=== PATIENT | male | born 1960 | race Caucasian/White ===

== ENCOUNTER 2016-05-26 12:35 | Emergency (ER) | payer OTHER ==
[~2016-05-26] VITALS: Ht 195.6 cm; Wt 125.0 kg
[~2016-05-26 12:35] MED LIST: ALBI1INJ SQ; ASPI81TA21 PO; CLON.1 PO; GABA800T PO; GLUC10TA3 PO; HARVONI PO; ISOS30 PO; LOPR50TA12 PO; LOSA100T PO; PLAV75TA PO; PROT40TA PO; SIME80CH CHEW
[2016-05-26 12:37] VITALS: BP 138/88; PULSE 98; RESP 24; TEMP 99.5; O2SAT 91
[2016-05-26] MEDS ORDERED: SODIUM CHLOR 0.9% 1000 ML INJ 1,000 ML IV SCH (15:12)
[2016-05-26] MEDS ORDERED: ONDANSETRON HCL 4 MG/2 ML VIAL IVP ONE (15:15)
[2016-05-26] MEDS ORDERED: RESP: ALBUTEROL 2.5 MG/IPRATROPIUM 0.5 MG NEB (SCH) NEB ONE (15:15)
[2016-05-26] MEDS ORDERED: RESP: LIDOCAINE HCL 4% PF 5 ML NEB NEB ONE (15:15)
[2016-05-26] MEDS ORDERED: MORPHINE SULFATE 4 MG/ML INJ IV PUSH ONE (15:15)
[2016-05-26] MEDS ORDERED: SODIUM CHLORIDE 0.9% FLUSH 5 ML FLUSH IVF PRN (15:15)
--- NOTE | 2016-05-26 15:25 | PD ---
HPI Chief Complaint: Cold / Flu Symptoms Time Seen by Provider: 15:07 Travel History International Travel<30 days: No Contact w/Intl Traveler<30days: No Traveled to known affect area: No History of Present Illness HPI The patient is a 55-year-old male who presents to the emergency department for fever, congestion, cough, and abdominal pain. The patient states his symptoms started on Tuesday when he "caught something ". The patient' s initial symptoms including nasal congestion and a productive cough producing yellow to brown sputum. The patient then developed abdominal pain after coughing, but now notes it is significantly increased the lower aspect of his abdomen. The patient does have a history of bilateral lower inguinal hernia repair. He denies any change in bowel habits, nausea, vomiting, or diarrhea. He does complain of subjective fevers with intermittent chills and sweats. The patient did receive his influenza vaccination and pneumococcal vaccination earlier this year, states he is a . The patient does complain of mild shortness of breath secondary to the coughing and also notes a small amount of posttussive emesis. PFSH Past Medical History Hx Anticoagulant Therapy: Yes Cardiovascular Problems: Yes High Cholesterol: Yes Cirrhosis: Yes Diabetes: Yes Diminished Hearing: No GERD: Yes Hepatitis: Yes (C) Hypertension: Yes Social History Alcohol Use: No Tobacco Use: Yes (1 PPD) Substance Use: No Allergies-Medications (Allergen,Severity, Reaction): Coded Allergies: No Known Allergies (Unverified , 05/26/16) Reported Meds & Prescriptions Reported Meds & Active Scripts Active Zithromax Z-Zackary (Azithromycin) 250 Mg Dspk 250 Mg PO DIRECTED 500 MG (2 tabs) day 1, then 1 tab days 2-5. Guaifenesin-Codeine Liq 100-10 Mg/5 Ml Soln 10 Ml PO Q6H PRN Ventolin Hfa 18 GM Inh (Albuterol Sulfate) 90 Mcg/Act Aer 2 Puff INH Q4H PRN Deltasone (Prednisone) 20 Mg Tab 40 Mg PO DAILY 5 Days Reported Tanzeum 4-Pack Inj (Albiglutide) 50 Mg Pfpen 50 Mg SQ Q7D Aspirin 81 Mg Tabdr 81 Mg PO DAILY Plavix (Clopidogrel Bisulfate) 75 Mg Tab 75 Mg PO DAILY Gabapentin 800 Mg Tab 800 Mg PO TID Glipizide 10 Mg Tab 20 Mg PO BIDAC Take 30 minutes before a meal Isosorbide Mononitrate ER (Isosorbide Mononitrate) 30 Mg Ayo 30 Mg PO DAILY Metoprolol Tartrate 100 Mg Tab 100 Mg PO BID Losartan (Losartan Potassium) 100 Mg Tab 100 Mg PO DAILY Simethicone 80 Mg Chw 160 Mg CHEW TID PRN Elavil (Amitriptyline HCl) 25 Mg Tab 25 Mg PO BID Amlodipine (Amlodipine Besylate) 10 Mg Tab 10 Mg PO DAILY Atorvastatin (Atorvastatin Calcium) 40 Mg Tab 40 Mg PO HS Terazosin (Terazosin HCl) 2 Mg Cap 2 Mg PO DAILY Review of Systems Except as stated in HPI: all other systems reviewed are Neg General / Constitutional: Positive: Fever (subjective), Chills HENT: Positive: Sore Throat, Congestion Cardiovascular: No: Chest Pain or Discomfort Respiratory: Positive: Cough, Shortness of Breath Gastrointestinal: Positive: Abdominal Pain, Other (posttussive emesis), No: Nausea, Vomiting, Diarrhea Genitourinary: No: Dysuria Musculoskeletal: Positive: Myalgias, Arthralgias Skin: No Rash Physical Exam Narrative GENERAL: Awake, alert, pleasant 55-year-old male who appears his stated age and is in no acute respiratory distress. SKIN: Warm and dry. HEAD: Atraumatic. Normocephalic. EYES: Pupils equal and round. No scleral icterus. No injection or drainage. ENT: No nasal bleeding or discharge. Oropharynx reveals diffuse erythema without exudate. NECK: Trachea midline. No JVD. CARDIOVASCULAR: Regular rate and rhythm. No murmur appreciated. Heart rate in the 90s. RESPIRATORY: No accessory muscle use. Few coarse rhonchi bilaterally. GASTROINTESTINAL: Abdomen obese, diffuse tenderness, worse in the left lower quadrant. No rebound tenderness or guarding. Back: No CVA tenderness. MUSCULOSKELETAL: No obvious deformities. No clubbing. No cyanosis. No edema. NEUROLOGICAL: Awake and alert. No obvious cranial nerve deficits. Motor grossly within normal limits. Normal speech. PSYCHIATRIC: Appropriate mood and affect; insight and judgment normal. Data Data Last Documented VS Vital Signs Date Time Temp Pulse Resp B/P Pulse Ox O2 Delivery O2 Flow Rate FiO2 05/26/16 18:21 83 16 122/72 92 05/26/16 16:23 Nasal Cannula 2 05/26/16 15:44 98.0 Orders Complete Blood Count With Diff (05/26/16 15:12) Comprehensive Metabolic Panel (05/26/16 15:12) Lipase (05/26/16 15:12) Lactic Acid (05/26/16 15:12) Urinalysis - C+S If Indicated (05/26/16 15:12) Ct Abd/Pel W/O Iv Contrast (05/26/16 15:12) Iv Access Insert/Monitor (05/26/16 15:12) Ecg Monitoring (05/26/16 15:12) Oximetry (05/26/16 15:12) Morphine Inj (Morphine Inj) (05/26/16 15:15) Ondansetron Inj (Zofran Inj) (05/26/16 15:15) Sodium Chlor 0.9% 1000 Ml Inj (Ns 1000 M (05/26/16 15:12) Sodium Chloride 0.9% Flush (Ns Flush) (05/26/16 15:15) Chest, Single Ap (05/26/16 15:12) Influenzae A/B Antigen (05/26/16 15:12) Blood Culture (05/26/16 15:12) Albuterol-Ipratropium Neb (Duoneb Neb) (05/26/16 15:15) Lidocaine Pf 4% Neb (Lidocaine Pf 4% Neb (05/26/16 15:15) Methylprednisolone So Succ Inj (Solumedr (05/26/16 17:45) Labs Laboratory Tests Test 05/26/16 05/26/16 15:38 16:33 White Blood Count 11.4 TH/MM3 Red Blood Count 5.28 MIL/MM3 Hemoglobin 17.1 GM/DL Hematocrit 49.6 % Mean Corpuscular Volume 94.1 FL Mean Corpuscular Hemoglobin 32.4 PG Mean Corpuscular Hemoglobin 34.4 % Concent Red Cell Distribution Width 13.4 % Platelet Count 153 TH/MM3 Mean Platelet Volume 10.6 FL Neutrophils (%) (Auto) 76.6 % Lymphocytes (%) (Auto) 12.0 % Monocytes (%) (Auto) 10.8 % Eosinophils (%) (Auto) 0.1 % Basophils (%) (Auto) 0.5 % Neutrophils # (Auto) 8.7 TH/MM3 Lymphocytes # (Auto) 1.4 TH/MM3 Monocytes # (Auto) 1.2 TH/MM3 Eosinophils # (Auto) 0.0 TH/MM3 Basophils # (Auto) 0.1 TH/MM3 CBC Comment DIFF FINAL Differential Comment Sodium Level 134 MEQ/L Potassium Level 4.0 MEQ/L Chloride Level 98 MEQ/L Carbon Dioxide Level 25.5 MEQ/L Anion Gap 11 MEQ/L Blood Urea Nitrogen 16 MG/DL Creatinine 1.13 MG/DL Estimat Glomerular Filtration 67 ML/MIN Rate Random Glucose 162 MG/DL Lactic Acid Level 1.4 mmol/L Calcium Level 8.9 MG/DL Total Bilirubin 0.6 MG/DL Aspartate Amino Transf 51 U/L (AST/SGOT) Alanine Aminotransferase 83 U/L (ALT/SGPT) Alkaline Phosphatase 69 U/L Total Protein 8.3 GM/DL Albumin 3.7 GM/DL Lipase 123 U/L Urine Color YELLOW Urine Turbidity CLEAR Urine pH 6.0 Urine Specific [place] 1.025 Urine Protein 100 mg/dL Urine Glucose (UA) NEG mg/dL Urine Ketones NEG mg/dL Urine Occult Blood NEG Urine Nitrite NEG Urine Bilirubin NEG Urine Urobilinogen 8.0 MG/DL Urine Leukocyte Esterase NEG Urine RBC 1 /hpf Urine WBC 1 /hpf Urine Mucus FEW /lpf Microscopic Urinalysis Comment CULT NOT INDICATED MDM Medical Decision Making Medical Screen Exam Complete: Yes Emergency Medical Condition: Yes Medical Record Reviewed: Yes Interpretation(s) Chest x-ray reveals no acute cardiopulmonary findings are identified Laboratory Tests Test 05/26/16 15:38 White Blood Count 11.4 TH/MM3 Red Blood Count 5.28 MIL/MM3 Hemoglobin 17.1 GM/DL Hematocrit 49.6 % Mean Corpuscular Volume 94.1 FL Mean Corpuscular Hemoglobin 32.4 PG Mean Corpuscular Hemoglobin 34.4 % Concent Red Cell Distribution Width 13.4 % Platelet Count 153 TH/MM3 Mean Platelet Volume 10.6 FL Neutrophils (%) (Auto) 76.6 % Lymphocytes (%) (Auto) 12.0 % Monocytes (%) (Auto) 10.8 % Eosinophils (%) (Auto) 0.1 % Basophils (%) (Auto) 0.5 % Neutrophils # (Auto) 8.7 TH/MM3 Lymphocytes # (Auto) 1.4 TH/MM3 Monocytes # (Auto) 1.2 TH/MM3 Eosinophils # (Auto) 0.0 TH/MM3 Basophils # (Auto) 0.1 TH/MM3 CBC Comment DIFF FINAL Differential Comment Sodium Level 134 MEQ/L Potassium Level 4.0 MEQ/L Chloride Level 98 MEQ/L Carbon Dioxide Level 25.5 MEQ/L Anion Gap 11 MEQ/L Blood Urea Nitrogen 16 MG/DL Creatinine 1.13 MG/DL Estimat Glomerular Filtration 67 ML/MIN Rate Random Glucose 162 MG/DL Lactic Acid Level 1.4 mmol/L Calcium Level 8.9 MG/DL Total Bilirubin 0.6 MG/DL Aspartate Amino Transf 51 U/L (AST/SGOT) Alanine Aminotransferase 83 U/L (ALT/SGPT) Alkaline Phosphatase 69 U/L Total Protein 8.3 GM/DL Albumin 3.7 GM/DL Lipase 123 U/L Last Impressions Chest X-Ray 05/26/16 1512 Signed Impressions: Service Date/Time: Thursday, May 26, 2016 15:25 - CONCLUSION: No acute cardiopulmonary findings are identified. Presley Pierre MD CT the abdomen and pelvis reveals no acute pathology Differential Diagnosis Differential diagnosis includes influenza, bronchitis, pneumonia, diverticulitis , sepsis, pyelonephritis, dehydration, pertussis. Narrative Course IV was established, labs are drawn and sent, and the patient was placed on cardiac telemetry monitoring and continuous pulse oximetry monitoring. Chest x- ray was ordered. Influenza screen was sent to lab. UA was ordered. CT of the abdomen and pelvis was ordered to evaluate for fever with left lower quadrant abdominal pain. Chest x-ray was unremarkable. Influenza screen was negative. CT the abdomen and pelvis reveals no incarcerated hernia or diverticulitis. White count was minimally elevated. The patient was reassessed, his symptoms had improved, he will be discharged home on prednisone, albuterol inhaler, cough medicine, and Zithromax. He is advised to follow-up with his primary physician and return if symptoms worsen or progress. Diagnosis Primary Impression: Bronchitis Patient Instructions: General Instructions Additional Instructions: Medications as directed. Follow-up with the [facility]. Please provide a patient a copy of his labs, chest x-ray results, flu results, and CT results at discharge. Return if symptoms worsen or progress. Med/Other Pt SpecificInfo: Prescription(s) given Scripts Azithromycin (Zithromax Z-Zackary)250 Mg [id number] Mg PO DIRECTED #1 DSPK Ref 0 500 MG (2 tabs) day 1, then 1 tab days 2-5. Prov:Ziyad Back MD 05/26/16 Guaifenesin-Codeine Liq 100-10 Mg/5 Ml Soln10 Ml PO Q6H PRN (COUGH) #1 BOTTLE Ref 0 Prov:Ziyad Back MD 05/26/16 Albuterol 18 GM Inh (Ventolin Hfa 18 GM Inh)90 Mcg/Act Aer2 Puff INH Q4H PRN ( SHORTNESS OF BREATH) #1 INHALER Ref 0 Prov:Ziyad Back MD 05/26/16 Prednisone (Deltasone)20 Mg Tab40 Mg PO DAILY 5 Days Ref 0 Prov:Ziyad Back MD 05/26/16 Disposition: 01 DISCHARGE HOME Condition: Stable Ziyad Back MD May 26, 2016 15:25
--- NOTE | 2016-05-26 15:39 | RADRPT ---
EXAM DATE/TIME: 05/26/2016 15:25 [facility] COMPARISON: No previous studies available for comparison. INDICATIONS : Cough, shortness of breath, and fever. MEDICAL HISTORY : None. SURGICAL HISTORY : None. ENCOUNTER: Initial ACUITY: 1 day PAIN SCORE: 3/10 LOCATION: chest FINDINGS: A single view of the chest demonstrates the lungs to be symmetrically aerated without evidence of mas s, infiltrate or effusion. The cardiomediastinal contours are unremarkable. Osseous structures demo nstrate an old, healed fracture of the right clavicle but are otherwise intact. CONCLUSION: No acute cardiopulmonary findings are identified. Prelsey Pierre MD on May 26, 2016 at 15:36 Board Certified Radiologist. This report was verified electronically.
[2016-05-26 15:43] VITALS: O2SAT 90
[2016-05-26 15:44] VITALS: BP 166/84; PULSE 85; RESP 20; TEMP 98; O2SAT 95
[2016-05-26 16:11] LABS: AUTOMATED NEUTROPHIL # 8.7 TH/MM3 (1.8-7.7); BASOPHIL # 0.1 TH/MM3 (0-0.2); BASOPHIL % 0.5 % (0.0-2.0); EOSINOPHIL % 0.1 % (0.0-4.0); HEMATOCRIT 49.6 % (39.0-51.0); HEMO FLAGS DIFF FINAL; LYMPHOCYTE # 1.4 TH/MM3 (1.0-4.8); MEAN CELL VOLUME 94.1 FL (80.0-100.0); MEAN CORPUSCULAR HEMOGLOBIN 32.4 PG (27.0-34.0); MEAN CORPUSCULAR HGB CONC 34.4 % (32.0-36.0); MONO % 10.8 % (0.0-8.0); NEUT % 76.6 % (16.0-70.0); PLATELET COUNT 153 TH/MM3 (150-450); RED BLOOD COUNT 5.28 MIL/MM3 (4.50-5.90); RED CELL DISTRIBUTION WIDTH 13.4 % (11.6-17.2); WHITE BLOOD COUNT 11.4 TH/MM3 (4.0-11.0)
[2016-05-26 16:22] VITALS: BP 143/75; PULSE 89; RESP 19; O2SAT 96
[2016-05-26 16:29] LABS: ALT (GPT) 83 U/L (12-78); ANION GAP 11 MEQ/L (5-15); AST (GOT) 51 U/L (15-37); BICARBONATE 25.5 MEQ/L (21.0-32.0); BLOOD UREA NITROGEN 16 MG/DL (7-18); CHLORIDE 98 MEQ/L (98-107); GLOMERULAR FILTRATION RATE 67 ML/MIN (>89); SODIUM (NA) 134 MEQ/L (136-145)
[2016-05-26 16:31] LABS: ALKALINE PHOSPHATASE 69 U/L (45-117); TOTAL BILIRUBIN ADULT 0.6 MG/DL (0.2-1.0)
--- NOTE | 2016-05-26 16:40 | RADRPT ---
EXAM DATE/TIME: 05/26/2016 15:50 [facility] COMPARISON: No previous studies available for comparison. INDICATIONS : Shortness of breath and lower abdomen pain. ORAL CONTRAST: No oral contrast ingested. RADIATION DOSE: 17.28 CTDIvol (mGy) MEDICAL HISTORY : Hypertension. Cirrhosis. Hepatitis C. Diabetes SURGICAL HISTORY : Hernia ENCOUNTER: Initial ACUITY: 4 - 6 days PAIN SCALE: 7/10 LOCATION: Lower quadrant Abdomen TECHNIQUE: Volumetric scanning of the abdomen and pelvis was performed. Using automated exposure control and adjustment of the mA and/or kV according to patient size, radiation dose was kept as low as reasonably achievable to obtain optimal diagnostic quality images. FINDINGS: Lung bases are clear. The liver, spleen, pancreas, adrenal glands and kidneys are unremarkable. There are diverticula present in the sigmoid colon without evidence for diverticulitis. Previous hernia surgery is noted. Bladder, prostate and seminal vesicles are unremarkable. CONCLUSION: 1. I do not see evidence for inflammatory process in the abdomen. 2. I do not see an etiology for the patient's abdominal pain. Cornelio Pierre MD FACR on May 26, 2016 at 16:33 Board Certified Radiologist. This report was verified electronically.
[2016-05-26] MEDS ORDERED: ATOR40TA16 PO (17:04)
[2016-05-26] MEDS ORDERED: AMLO10TA2 PO (17:04)
[2016-05-26] MEDS ORDERED: GLIP10TA6 PO (17:04)
[2016-05-26] MEDS ORDERED: METO100T PO (17:04)
[2016-05-26] MEDS ORDERED: TERA2CAP3 PO (17:04)
[2016-05-26] MEDS ORDERED: ISOS30TA3 PO (17:04)
[2016-05-26] MEDS ORDERED: GABA800T PO (17:04)
[2016-05-26] MEDS ORDERED: AMIT1TAB79 PO (17:04)
[2016-05-26] MEDS ORDERED: SIME80CH CHEW (17:04)
[2016-05-26] MEDS ORDERED: LOSA100T PO (17:04)
[2016-05-26] MEDS ORDERED: PLAV75TA29 PO (17:11)
[2016-05-26] MEDS ORDERED: ASPI1TAB69 PO (17:11)
[2016-05-26] MEDS ORDERED: ALBI1INJ2 SQ (17:11)
[2016-05-26 17:19] VITALS: RESP 17
[2016-05-26 17:45] LABS: BLOOD, URINE NEG (NEG); COMMENT (UR) CULT NOT INDICATED; CULTURE IF INDICATED CULT NOT INDICATED; GLUCOSE,URINE NEG (NEG); KETONE, URINE NEG (NEG); MUCUS URINE FEW /lpf (OCC); NITRITE,URINE NEG (NEG); URINE COLOR YELLOW (YELLW/STRAW)
[2016-05-26] MEDS ORDERED: PRED-503 PO (17:45)
[2016-05-26] MEDS ORDERED: ZITHTAB PO (17:45)
[2016-05-26] MEDS ORDERED: GUAI100S5 PO (17:45)
[2016-05-26] MEDS ORDERED: methylPREDNISolone SOD SUCC 125 MG/2 ML VIAL IV PUSH ONE (17:45)
[2016-05-26] MEDS ORDERED: VENTAER INH (17:45)
[2016-05-26 18:21] VITALS: BP 122/72
== END 2016-05-26 19:06 | disposition home or self-care (01) ==
LOC: NEPC 12:35
DX: J40 Bronchitis, not specified as acute or chronic (principal); R82.90 Unspecified abnormal findings in urine; I10 Essential (primary) hypertension; E78.00 Pure hypercholesterolemia, unspecified; F17.210 Nicotine dependence, cigarettes, uncomplicated
CPT/HCPCS: 71010; 74176; 80053; 81001; 83605; 83690; 85025; 87040; 87804; 94664; 96361; 96374; 96375; 99284; J2270; J2405; J2930; J7030

== ENCOUNTER 2016-07-30 13:45 | Emergency (ER) | payer OTHER ==
[~2016-07-30 13:45] MED LIST changes: -ALBI1INJ SQ; +ALBI1INJ2 SQ; +AMIT1TAB79 PO; +AMLO10TA2 PO; +ASPI1TAB69 PO; -ASPI81TA21 PO; +ATOR40TA16 PO; -CLON.1 PO; +GLIP10TA6 PO; -GLUC10TA3 PO; +GUAI100S5 PO; -HARVONI PO; -ISOS30 PO; +ISOS30TA3 PO; -LOPR50TA12 PO; +METO100T PO; -PLAV75TA PO; +PLAV75TA29 PO; +PRED-503 PO; -PROT40TA PO; +TERA2CAP3 PO; +VENTAER INH; +ZITHTAB PO
[2016-07-30 13:53] VITALS: BP 116/62; PULSE 40; RESP 15; TEMP 97.7; O2SAT 95
[2016-07-30] MEDS ORDERED: SODIUM CHLORIDE 0.9% FLUSH 5 ML FLUSH IVF PRN (14:15)
[2016-07-30] MEDS ORDERED: HYDR25TA5 PO (14:30)
[2016-07-30] MEDS ORDERED: METF500T PO (14:30)
[2016-07-30] MEDS ORDERED: SPIRCAP INH (14:31)
[2016-07-30] MEDS ORDERED: DULO1CAP2 PO (14:31)
[2016-07-30] MEDS ORDERED: CALC1TAB30 PO (14:31)
[2016-07-30] MEDS ORDERED: [UNRECOGNIZED DRUG - CODE] PO (14:31)
[2016-07-30] MEDS ORDERED: BACL10TA PO (14:31)
[2016-07-30] MEDS ORDERED: SPIR25TA PO (14:31)
--- NOTE | 2016-07-30 14:54 | RADRPT ---
EXAM DATE/TIME: 07/30/2016 14:27 [facility] COMPARISON: No previous studies available for comparison. INDICATIONS : Chest Pain, low heart rate MEDICAL HISTORY : Chronic obstructive pulmonary disease. SURGICAL HISTORY : None. ENCOUNTER: Initial ACUITY: 1 day PAIN SCORE: 7/10 LOCATION: Bilateral chest FINDINGS: A single view of the chest demonstrates the lungs to be symmetrically aerated without evidence of mas s, infiltrate or effusion. The cardiomediastinal contours are unremarkable. Osseous structures are intact. CONCLUSION: No evidence of acute cardiopulmonary disease. Yousif Mejia MD on July 30, 2016 at 14:52 Board Certified Radiologist. This report was verified electronically.
[2016-07-30 15:13] LABS: AUTOMATED NEUTROPHIL # 8.3 TH/MM3 (1.8-7.7); BASOPHIL # 0.1 TH/MM3 (0-0.2); BASOPHIL % 0.9 % (0.0-2.0); EOSINOPHIL # 0.9 TH/MM3 (0-0.4); EOSINOPHIL % 6.6 % (0.0-4.0); HEMATOCRIT 47.3 % (39.0-51.0); HEMO FLAGS DIFF FINAL; LYMPH % 21.9 % (9.0-44.0); LYMPHOCYTE # 2.8 TH/MM3 (1.0-4.8); MEAN CELL VOLUME 93.5 FL (80.0-100.0); MEAN CORPUSCULAR HEMOGLOBIN 33.1 PG (27.0-34.0); MEAN CORPUSCULAR HGB CONC 35.4 % (32.0-36.0); MONO % 6.4 % (0.0-8.0); NEUT % 64.2 % (16.0-70.0); PLATELET COUNT 210 TH/MM3 (150-450); RED BLOOD COUNT 5.05 MIL/MM3 (4.50-5.90); RED CELL DISTRIBUTION WIDTH 13.6 % (11.6-17.2)
[2016-07-30 15:18] VITALS: O2SAT 90
[2016-07-30 15:28] LABS: APTT (PATIENT) 28.2 SEC (24.3-30.1); PROTHROMBIN TIME - PATIENT 10.7 SEC (9.8-11.6)
[2016-07-30 15:48] LABS: ANION GAP 11 MEQ/L (5-15); BICARBONATE 23.3 MEQ/L (21.0-32.0); BLOOD UREA NITROGEN 24 MG/DL (7-18); CHLORIDE 103 MEQ/L (98-107); GLOMERULAR FILTRATION RATE 53 ML/MIN (>89); MAGNESIUM 2.1 MG/DL (1.5-2.5); POTASSIUM 4.1 MEQ/L (3.5-5.1); SODIUM (NA) 137 MEQ/L (136-145)
[2016-07-30 15:52] LABS: CREATINE KINASE 101 U/L (39-308)
[2016-07-30 16:04] LABS: CKMB 0.9 NG/ML (0.5-3.6)
--- NOTE | 2016-07-30 16:09 | PD ---
HPI Chief Complaint: Medical Clearance Time Seen by Provider: 14:05 Travel History International Travel<30 days: No Contact w/Intl Traveler<30days: No Traveled to known affect area: No History of Present Illness HPI Patient 55-year-old male presents emergency department for evaluation. He was sent over by the [facility] because he went there because he thinks he took an additional metoprolol 100 mg by mouth tablet. He states that he usually takes 100 mg by mouth twice a day. He states that while he was preparing to take his medications he was distracted by a phone call and knows he took 1 additional pill. He is fairly certain it was a metoprolol but couldn't be for certain. He denies any symptoms at all but [facility] They said that his blood pressure was little low and called 911 and sent him over here. He denies any chest pain shortness of breath feelings of dizziness fatigue nausea vomiting or diarrhea. He states the accident happened approximately 2-3 hours prior to his arrival [facility] Past Medical History Hx Anticoagulant Therapy: Yes Anxiety: Yes Cardiovascular Problems: Yes High Cholesterol: Yes Cirrhosis: Yes Diabetes: Yes Patient Takes Glucophage: Yes Diminished Hearing: No GERD: Yes Hepatitis: Yes (C) Hypertension: Yes Myocardial Infarction: Yes Past Surgical History Cardiac Surgery: Yes (stent 2015) Tonsillectomy: Yes Other Surgery: Yes (hernia repair x 4) Social History Alcohol Use: Yes (occ) Tobacco Use: Yes (1 PPD) Substance Use: Yes (marijuana) Allergies-Medications (Allergen,Severity, Reaction): Coded Allergies: No Known Allergies (Unverified , 07/30/16) Reported Meds & Prescriptions Reported Meds & Active Scripts Active Ventolin Hfa 18 GM Inh (Albuterol Sulfate) 90 Mcg/Act Aer 2 Puff INH Q4H PRN Reported Spiriva Handihaler (Tiotropium Inh) 18 Mcg Cap 18 Mcg INH DAILY 1 capsule = 18 mcg Disalcid (Salsalate) 750 Mg Tab 1,500 Mg PO TID Calcium 600 + D (Calcium Carbonate-Cholecalciferol) 600-200 Mg-Unit Tab 2 Tab PO BID Baclofen 10 Mg Tab 10 Mg PO TID Spironolactone 25 Mg Tab 12.5 Mg PO DAILY Duloxetine DR (Duloxetine HCl) 30 Mg Capdr 30 Mg PO DAILY Hydrochlorothiazide 25 Mg Tab 25 Mg PO DAILY Metformin (Metformin HCl) 500 Mg Tab 500 Mg PO BIDPC With meals Tanzeum 4-Pack Inj (Albiglutide) 50 Mg Pfpen 50 Mg SQ Q7D Aspirin 81 Mg Tabdr 81 Mg PO DAILY Gabapentin 800 Mg Tab 800 Mg PO TID Glipizide 10 Mg Tab 20 Mg PO BIDAC Take 30 minutes before a meal Isosorbide Mononitrate ER (Isosorbide Mononitrate) 30 Mg Ayo 30 Mg PO DAILY Metoprolol Tartrate 100 Mg Tab 100 Mg PO BID Losartan (Losartan Potassium) 100 Mg Tab 100 Mg PO DAILY Simethicone 80 Mg Chw 160 Mg CHEW TID PRN Elavil (Amitriptyline HCl) 25 Mg Tab 25 Mg PO BID Amlodipine (Amlodipine Besylate) 10 Mg Tab 10 Mg PO DAILY Atorvastatin (Atorvastatin Calcium) 40 Mg Tab 40 Mg PO HS Terazosin (Terazosin HCl) 2 Mg Cap 2 Mg PO DAILY Review of Systems Except as stated in HPI: all other systems reviewed are Neg Physical Exam Narrative GENERAL: Well-developed well-nourished no apparent distress SKIN: Warm and dry. HEAD: Atraumatic. Normocephalic. EYES: Pupils equal and round. No scleral icterus. No injection or drainage. ENT: No nasal bleeding or discharge. Mucous membranes pink and moist. NECK: Trachea midline. No JVD. CARDIOVASCULAR: Regular rate and rhythm. No murmur appreciated. 2+ bilateral equal pulses in all 4 extremities RESPIRATORY: No accessory muscle use. Clear to auscultation. Breath sounds equal bilaterally. GASTROINTESTINAL: Abdomen soft, non-tender, nondistended. Hepatic and splenic margins not palpable. MUSCULOSKELETAL: No obvious deformities. No clubbing. No cyanosis. No edema. NEUROLOGICAL: Awake and alert. No obvious cranial nerve deficits. Motor grossly within normal limits. Normal speech. PSYCHIATRIC: Appropriate mood and affect; insight and judgment normal. Data Data Last Documented VS Vital Signs Date Time Temp Pulse Resp B/P Pulse Ox O2 Delivery O2 Flow Rate FiO2 07/30/16 16:41 57 156/76 07/30/16 15:18 90 Room Air 07/30/16 15:18 2 07/30/16 13:53 97.7 15 Orders Electrocardiogram (07/30/16 14:05) Basic Metabolic Panel (Bmp) (07/30/16 14:05) Ckmb (Isoenzyme) Profile (07/30/16 14:05) Complete Blood Count With Diff (07/30/16 14:05) Magnesium (Mg) (07/30/16 14:05) Prothrombin Time / Inr (Pt) (07/30/16 14:05) Act Partial Throm Time (Ptt) (07/30/16 14:05) Troponin I (07/30/16 14:05) Chest, Single Ap (07/30/16 14:05) Ecg Monitoring (07/30/16 14:05) Bilateral Bp Monitoring (07/30/16 14:05) Iv Access Insert/Monitor (07/30/16 14:05) Oximetry (07/30/16 14:05) Oxygen Administration (07/30/16 14:05) Sodium Chloride 0.9% Flush (Ns Flush) (07/30/16 14:15) CKMB (07/30/16 15:00) CKMB% (07/30/16 15:00) Labs Laboratory Tests Test 07/30/16 15:00 White Blood Count 13.0 TH/MM3 Red Blood Count 5.05 MIL/MM3 Hemoglobin 16.7 GM/DL Hematocrit 47.3 % Mean Corpuscular Volume 93.5 FL Mean Corpuscular Hemoglobin 33.1 PG Mean Corpuscular Hemoglobin 35.4 % Concent Red Cell Distribution Width 13.6 % Platelet Count 210 TH/MM3 Mean Platelet Volume 10.2 FL Neutrophils (%) (Auto) 64.2 % Lymphocytes (%) (Auto) 21.9 % Monocytes (%) (Auto) 6.4 % Eosinophils (%) (Auto) 6.6 % Basophils (%) (Auto) 0.9 % Neutrophils # (Auto) 8.3 TH/MM3 Lymphocytes # (Auto) 2.8 TH/MM3 Monocytes # (Auto) 0.8 TH/MM3 Eosinophils # (Auto) 0.9 TH/MM3 Basophils # (Auto) 0.1 TH/MM3 CBC Comment DIFF FINAL Differential Comment Prothrombin Time 10.7 SEC Prothromb Time International 1.0 RATIO Ratio Activated Partial 28.2 SEC Thromboplast Time Sodium Level 137 MEQ/L Potassium Level 4.1 MEQ/L Chloride Level 103 MEQ/L Carbon Dioxide Level 23.3 MEQ/L Anion Gap 11 MEQ/L Blood Urea Nitrogen 24 MG/DL Creatinine 1.39 MG/DL Estimat Glomerular Filtration 53 ML/MIN Rate Random Glucose 149 MG/DL Calcium Level 9.6 MG/DL Magnesium Level 2.1 MG/DL Total Creatine Kinase 101 U/L Creatine Kinase MB 0.9 NG/ML Troponin I LESS THAN 0.02 NG/ML MDM Medical Decision Making Medical Screen Exam Complete: Yes Emergency Medical Condition: Yes Interpretation(s) EKG shows sinus rhythm with sinus arrhythmia and first-degree heart block with a [facility] interval of 213. Intervals are otherwise within normal limits. No concerning ST T changes. This is an abnormal EKG. Cardiac monitoring shows the patient has been in sinus rhythm the entire time in the emergency Department at a rate of approximate 70-80. No hypotensive episodes were noted in the emergency department. Differential Diagnosis Beta jason overdose, transient hypotension, medication reaction. Narrative Course Patient was roomed in emergency department, appears quite stable and in no apparent distress. Heart rate was documented as 40 on the waiting room but he has not had any bradycardia or hypotensive episodes in the emergency department. He was watched for 2 and half hours. He normally takes 100 mg of metoprolol twice a day at home and at most he states took 1 additional pill accidentally. After observation for 2 hours in the emergency department without any bradycardia I highly doubt that he will have any hemodynamically significant effect. This is discussed the patient and I have discussed with them that observation status to be considered by think he'll be well at home. He would like to go home at this time. Discussed with them need for follow-up with his primary care physician and return to ED criteria. Diagnosis Primary Impression: Medication adverse effect Qualified Code: T88.7XXA - Medication adverse effect, initial encounter Disposition: 01 DISCHARGE HOME Condition: Stable Nick Laboy MD Jul 30, 2016 16:09
[2016-07-30 16:41] VITALS: BP 156/76
--- NOTE | 2016-07-31 16:40 | EKG ---
Date Performed: 07/30/2016 Time Performed: 13:26:19 PTAGE: 55 years EKG: Sinus rhythm WITH SINUS ARRHYTHMIA WITH FIRST DEGREE AV BLOCK POSSIBLE LATERAL MYOCARDIAL INFARCTION SINCE THE LA EVIOUS TRACING, LA INTERVAL IS MORE PROLONGED, OTHERWISE NO SIGNIFICANT CHANGE. ABNORMAL ECG PREVIOUS TRACING : 03/04/2016 16.54 DOCTOR: Gilbert Watson Interpretating Date/Time 07/31/2016 16:40:28
== END 2016-07-30 16:45 | disposition home or self-care (01) ==
LOC: NEPB 13:45
DX: T44.7X1A Poisoning by beta-adrenoreceptor antagonists, accidental (unintentional), initial encounter (principal); I49.8 Other specified cardiac arrhythmias; I44.0 Atrioventricular block, first degree; R94.31 Abnormal electrocardiogram [ECG] [EKG]; E78.00 Pure hypercholesterolemia, unspecified; K74.60 Unspecified cirrhosis of liver; E11.9 Type 2 diabetes mellitus without complications; I10 Essential (primary) hypertension; I25.2 Old myocardial infarction; F17.210 Nicotine dependence, cigarettes, uncomplicated
CPT/HCPCS: 71010; 80048; 82550; 82552; 83735; 84484; 85025; 85610; 85730; 93005